=== PATIENT | male | born 1995 | race Caucasian/White ===

== ENCOUNTER 2024-03-25 15:05 | Emergency (ER) | payer OTHER ==
[2024-03-25] MEDS: Pantoprazole 40 MG Tab.CR PO STA (18:59)
[2024-03-25] MEDS: Amoxicillin/Clavulanate K 875-125 MG Tab PO STA (18:59)
== END 2024-03-25 19:08 | disposition home or self-care (01) ==
LOC: MW.ED 15:05
DX: H66.92 Otitis media, unspecified, left ear (principal); R04.2 Hemoptysis; Z75.8 Other problems related to medical facilities and other health care
CPT/HCPCS: 71046; 99283; A9270